=== PATIENT | male | born 1960 | race Caucasian/White ===

== ENCOUNTER 2020-05-02 05:39 | Day surgery (SDC) | payer BC ==
[2020-04-26 11:32] LABS: ABSOLUTE BASOPHILS # (AUTO) 0.1 10^3/uL (0.0-0.2); ABSOLUTE EOSINOPHILS # (AUTO) 0.9 10^3/uL (0.0-0.6); ABSOLUTE LYMPHOCYTES (AUTO) 2.5 10^3/uL (0.5-4.7); ABSOLUTE MONOCYTES (AUTO) 0.4 10^3/uL (0.1-1.4); ABSOLUTE NEUT (AUTO) 6.9 10^3/uL (1.7-8.2); BASOPHILS % (AUTO) 0.7 % (0-2); EOSINOPHILS % (AUTO) 7.9 % (0-6); HEMATOCRIT 41.1 % (37.9-51.0); HEMOGLOBIN 13.7 g/dL (13.5-17.0); LYMPHOCYTES % (AUTO) 23.7 % (13-45); MEAN CORPUSCULAR HGB CONC 33.4 g/dL (32.0-36.0); MEAN CORPUSCULAR VOLUME 84 fl (80-97); MONOCYTES % (AUTO) 4.2 % (3-13); PLATELET COUNT 244 10^3/uL (150-450); RED CELL DISTRIBUTION WIDTH 15.5 % (11.5-14.0); SEGMENTED NEUTROPHILS % (AUTO) 63.5 % (42-78); TOTAL CELLS COUNTED % (AUTO) 100 %; WHITE BLOOD COUNT 10.8 10^3/uL (4.0-10.5)
[2020-04-26 11:45] LABS: ANION GAP 9 (5-19); BLOOD UREA NITROGEN 19 mg/dL (7-20); CALCIUM 9.4 mg/dL (8.4-10.2); CARBON DIOXIDE 30 mmol/L (22-30); CHLORIDE 98 mmol/L (98-107); GLUCOSE 128 mg/dL (75-110); POTASSIUM 3.9 mmol/L (3.6-5.0)
--- NOTE | 2020-04-26 17:57 | EKG REPORT ---
SEVERITY:- DEFECTIVE ECG - BORDERLINE T ABNORMALITIES, ANT-LAT LEADS SINUS RHYTHM WITH BASELINE ARTIFACT.REPEAT EKG : Confirmed by: Shae Still MD 26-Apr-2020 17:56:24
[~2020-05-02 05:39] MED LIST: ACETAMINOPHEN 325 MG TABLET PO PRN; CEFAZOLIN 2 GM/D5W RTU 2 GM/50 ML RTUPB IV PRN; CELECOXIB 200 MG CAPSULE PO PRN; GABAPENTIN 100 MG CAPSULE PO PRN; LACTATED RINGERS 1000 ML IV PRN; LIDOCAINE 0.5% INJ-PF (5 MG/ML) 50 ML SDV SUBCUT PRN; ONDANSETRON HCL INJ/PF 4 MG/2 ML SDV IV PRN; OXYCODONE HCL SR 10 MG TABLET PO PRN; SCOPOLAMINE HYDROBROMIDE 1.5 MG PATCH.TD72 TD PRN; TRAMADOL HCL 50 MG TABLET PO PRN; TRANEXAMIC ACID INJ/PF 1,000 MG/10 ML SDV IV PRN; VANCOMYCIN HCL 1,000 MG in DEXTROSE 5%-WATER 250 ML IV PRN
[2020-05-02] MEDS ORDERED: VANCOMYCIN HCL INJ 1000 MG VIAL ONE ×2 (06:28→07:10)
[2020-05-02] MEDS ORDERED: CEFAZOLIN 2 GM/D5W RTU 2 GM/50 ML RTUPB IV ONE (07:06)
[2020-05-02] MEDS ORDERED: BUPIVACAINE HCL 0.25 % INJ/PF (2.5 MG/1 ML) 30 ML VIAL ONE (07:10)
[2020-05-02] MEDS ORDERED: KETOROLAC TROMETHAMINE INJ/PF 30 MG/1 ML SDV ONE (07:10)
[2020-05-02] MEDS ORDERED: LIDOCAINE 1% INJ-PF (10 MG/ML) 30 ML SDV ONE (07:10)
[2020-05-02] MEDS ORDERED: LIDOCAINE 2% INJ (20 MG/ML) 20 ML MDV ONE (07:11)
[2020-05-02] MEDS ORDERED: FENTANYL CITRATE INJ/PF 100 MCG/2 ML AMPUL ONE (07:12)
[2020-05-02] MEDS ORDERED: PROPOFOL 1,000 MG/100 ML INFUS..BTL IV ONE (07:13)
[2020-05-02] MEDS ORDERED: MIDAZOLAM 2 MG/2 ML INJ ONE (07:13)
[2020-05-02] MEDS ORDERED: TRANEXAMIC ACID INJ/PF 1,000 MG/10 ML SDV ONE (07:19)
[2020-05-02] MEDS ORDERED: CEFAZOLIN INJ 1 GM VIAL ONE (08:25)
[2020-05-02] MEDS ORDERED: DEXMEDETOMIDINE INJ 80 MCG/20 ML VIAL IV ONE (09:34)
--- NOTE | 2020-05-02 10:56 | Operative Report ---
Operative Report DATE OF SURGERY: 05/02/20 PREOPERATIVE DIAGNOSIS: Right hip primary osteoarthritis POSTOPERATIVE DIAGNOSIS: Severe right hip primary osteoarthritis OPERATION: Right total hip arthroplasty SURGEON: UNRULY VILLALBA JR ANESTHESIA: Spinal COMPLICATIONS: None ESTIMATED BLOOD LOSS: 550 cc PROCEDURE: Implants: Inga secure fit size 10 femoral stem with lateral offset, a Trident 2 size 58 cup, and a standard liner, a +7.5 neck length 36 mm ceramic head BRIEF HISTORY: 59 year old male with severe degenerative arthritis of right hip, which has failed conservative treatment and has elected for a total hip arthroplasty. Risks include but are not limited to bleeding, infection, anesthesia, , injury to nerve or vessel, pain, scar, leg length inequality, dislocation, future surgery, and blood clots. Patient read through the pre-op counseling form and signed and consented for surgery on their right hip. OPERATIVE PROCEDURE: Patient was brought to the operating room on and underwent spinal anesthesia. 3 grams of Ancef and 1 g of vancomycin was given. After proper anesthesia was obtained, patient was positioned, padded, prepped, and draped in the usual sterile fashion on the operating room table. Appropriate time out was performed. An anterior approach to the hip was undertaken with meticulous hemostasis through the deep interval. A capsulectomy was performed followed by exposure of the femoral neck. The femoral neck was cut in line with the femoral broach. The patient had severe valgus alignment of his [place] femoral neck. Our standard neck cut produced a relatively low in relation to the lesser trochanter as compared to standard procedure. The acetabulum was then exposed with three retractors in an atraumatic fashion. Soft tissue and osteophytes were removed. Medialization reaming was performed followed by anatomic reaming up to accept a 58 mm acetabulum. Wound was irrigated with dilute betadyne solution and the 58 mm acetabulum was impacted into correct position and stability checked by manipulating the impaction handle which rocked the pelvis. A standard liner was impacted into the shell with good stability. Potential impinging osteophytes were removed. Attention was then directed toward the femur, which was exposed with two retractors in an atraumatic fashion. A bone hook was placed to carefully perform releases along the superior capsule until the femur was safely delivered through the wound. A dry box operator was utilized followed by lateralization rasping and then broaching up to accept a size 5 Accolade 2 femur. Unfortunately due to the patient's anatomy, the broach repeatedly wanted to seat into acceptable anteversion. This is in spite of the patient having apparent relative retroversion of his [place] femur. Multiple attempts were made to correct the version including reaming distally, and proceed to a size 6 stem in appropriate version but rotational stability was not able to be accomplished. At this point we decided to move to a secure fit style stem. We broached up to a size 9 stem then, reviewing with fluoroscopy appeared that we could proceed to a size 10. At this point we reamed in order to ensure appropriate broaching. We were able to seat a size 10 stem in appropriate position with good stability and version. With a standard offset neck and a standard neck length head, reproduced adequate stability and slightly short leg length on the right. We proceeded to a size +5 head which achieved good stability and leg length. The real size 10 was impacted and appeared to seat at the level of the prior broach. We impacted the real size 5 head into position on a clean dry taper. Upon trialing the leg length was appropriate and stability was likely adequate with 1 position of external rotation that was concerning for potential anterior dislocation. At this point removed the head and then trialed a +7.5 head which achieved good leg length and stability. The real 7.5 36 mm ceramic head was impacted on a clean dry femoral taper. The hip was irrigated and reduced, further irrigation with antibiotic solution, betadine solution, then antibiotic solution. Bleeders were coagulated with bovie cautery. The fascia was then closed with number 2 Stratofix; the subcutaneous tissue closed with interrupted inverted 2-0 monocryl then running 3-0 monocryl subcuticular. A silver dressing was then applied. All needle sponge and instrument counts were correct. Patient was awakened from sedation anesthesia and taken to recovery room in good condition. Thank you, Unruly Villalba DO Due to the patient's BMI of 40.7 as well as his altered anatomy as described above, the case took more time and effort then a standard total hip arthrop lasty. Increased time and effort were required to achieve good exposure, as well as increased effort required to manipulate his large heavy leg. Also increased time and effort were required to achieve good stability given his size and unique anatomy. Increased time and effort required to close the wound as well given the larger incision than is typically utilized. Due to these factors we are billing a 22 modifier.
[2020-05-02] MEDS ORDERED: PROPOFOL INJ 200 MG/20 ML VIAL IV ONE (11:03)
[2020-05-02] MEDS ORDERED: MEPERIDINE HCL/PF INJ 25 MG/1 ML DISP.SYRIN IV PRN (11:47)
[2020-05-02] MEDS ORDERED: FENTANYL CITRATE INJ/PF 100 MCG/2 ML AMPUL IV PRN ×3 (11:47)
[2020-05-02] MEDS ORDERED: MORPHINE SULFATE 10 MG/ML INJ IV PRN (11:47)
[2020-05-02] MEDS ORDERED: DIPHENHYDRAMINE HCL 50 MG/ML VIAL IV PRN (11:47)
[2020-05-02] MEDS ORDERED: ONDANSETRON HCL INJ/PF 4 MG/2 ML SDV IV PRN (11:47)
[2020-05-02] MEDS: EPHEDRINE SULFATE INJ 50 MG/1 ML AMPULE ONE ×4 (11:49→12:20)
--- NOTE | 2020-05-02 12:29 | RADIOLOGY REPORT (SQ) ---
EXAM DESCRIPTION: NO CHG FLUORO; HIP IN OPERATING RM IMAGES COMPLETED DATE/TIME: 05/02/2020 11:18 am REASON FOR STUDY: RIGHT TOTAL HIP ARTHROPLASTY COMPARISON: None. FLUOROSCOPY TIME: 0.1 minutes 3 Images saved to PACS LIMITATIONS: None. PROCEDURE: Right total hip arthroplasty. FINDINGS: Images from fluoro document the procedure. IMPRESSION: Right hip arthroplasty. Refer to operative note for further information. COMMENT: PQRS 6045F: Fluoroscopy time of the procedure is documented in the report. TECHNICAL DOCUMENTATION: JOB ID: [id number] 2010 [email or web address]- All Rights Reserved Reading location - IP/workstation name: [email or web address]
--- NOTE | 2020-05-02 12:29 | RADIOLOGY REPORT (SQ) ---
EXAM DESCRIPTION: NO CHG FLUORO; HIP IN OPERATING RM IMAGES COMPLETED DATE/TIME: 05/02/2020 11:18 am REASON FOR STUDY: RIGHT TOTAL HIP ARTHROPLASTY COMPARISON: None. FLUOROSCOPY TIME: 0.1 minutes 3 Images saved to PACS LIMITATIONS: None. PROCEDURE: Right total hip arthroplasty. FINDINGS: Images from fluoro document the procedure. IMPRESSION: Right hip arthroplasty. Refer to operative note for further information. COMMENT: PQRS 6045F: Fluoroscopy time of the procedure is documented in the report. TECHNICAL DOCUMENTATION: JOB ID: [id number] 2010 [employer]- All Rights Reserved Reading location - IP/workstation name: [email or web address]
--- NOTE | 2020-05-02 12:36 | RADIOLOGY REPORT (SQ) ---
EXAM DESCRIPTION: HIP RIGHT AP/LATERAL IMAGES COMPLETED DATE/TIME: 05/02/2020 12:09 pm REASON FOR STUDY: S/P RIGHT TOTAL HIP M25.551 PAIN IN RIGHT HIP COMPARISON: None. NUMBER OF VIEWS: Two views. TECHNIQUE: AP pelvis and additional frog-leg view of the right hip. LIMITATIONS: None. FINDINGS: MINERALIZATION: Normal. RIGHT HIP: Status post right total hip arthroplasty without evidence of hardware complication. LEFT HIP: Degenerative changes. No acute findings. PUBIS AND ISCHIUM: No fracture. PELVIS: No fracture. SACRUM: No fracture or dislocation. No worrisome bone lesions. LOWER LUMBAR SPINE: Degenerative changes are present. SOFT TISSUES: Subcutaneous and intra-articular gas are not unexpected in the immediate postsurgical s etting. OTHER: No other significant finding. IMPRESSION: Status post right total hip arthroplasty without evidence of hardware complication. TECHNICAL DOCUMENTATION: JOB ID: [id number] 2010 [employer]- All Rights Reserved Reading location - IP/workstation name: [email or web address]
[2020-05-02] MEDS ORDERED: ONDANSETRON HCL INJ/PF 4 MG/2 ML SDV ONE (13:03)
[2020-05-02] MEDS ORDERED: OXYCODONE HCL IR 5 MG TABLET PO PRN (14:49)
[2020-05-02] MEDS ORDERED: TRAMADOL HCL 50 MG TABLET PO PRN (14:51)
[2020-05-02] MEDS ORDERED: DIPHENHYDRAMINE HCL 25 MG CAPSULE PO PRN (14:57)
[2020-05-02] MEDS ORDERED: ZOLPIDEM TARTRATE 5 MG TABLET PO PRN (14:57)
[2020-05-02] MEDS ORDERED: NORMAL SALINE 1000 ML 1,000 ML IV PRN (14:59)
[2020-05-02] MEDS ORDERED: DOCUSATE SODIUM 100 MG CAPSULE PO PRN (14:59)
[2020-05-02] MEDS ORDERED: ONDANSETRON 4 MG TAB.RAPDIS PO PRN (15:00)
[2020-05-02] MEDS: OXYCODONE HCL IR 5 MG TABLET PO PRN ×2 (16:25→20:55)
[2020-05-02] MEDS: CEFAZOLIN 2 GM/D5W RTU 2 GM/50 ML RTUPB IV SCH (17:52)
[2020-05-02] MEDS: GABAPENTIN 100 MG CAPSULE PO SCH ×2 (17:53→18:12)
[2020-05-02] MEDS: MORPHINE SULFATE 10 MG/ML INJ IV PRN ×2 (17:53→20:05)
[2020-05-02] MEDS ORDERED: PANTOPRAZOLE SODIUM 20 MG TABLET.DR PO ONE (18:00)
[2020-05-02] MEDS: KETOROLAC TROMETHAMINE INJ/PF 30 MG/1 ML SDV IV SCH (22:01)
[2020-05-02] MEDS: ACETAMINOPHEN 325 MG TABLET PO SCH (22:01)
[2020-05-03] MEDS: MORPHINE SULFATE 10 MG/ML INJ IV PRN ×2 (00:02→03:46)
[2020-05-03] MEDS: CEFAZOLIN 2 GM/D5W RTU 2 GM/50 ML RTUPB IV SCH (01:03)
[2020-05-03] MEDS: OXYCODONE HCL IR 5 MG TABLET PO PRN ×3 (01:06→13:52)
[2020-05-03] MEDS: KETOROLAC TROMETHAMINE INJ/PF 30 MG/1 ML SDV IV SCH ×2 (05:30→13:13)
[2020-05-03] MEDS: ACETAMINOPHEN 325 MG TABLET PO SCH (05:30)
[2020-05-03] MEDS ORDERED: CYCLOBENZAPRINE HCL 10 MG TABLET PO PRN (07:26)
--- NOTE | 2020-05-03 07:26 | PDOC PROGRESS REPORT ---
Subjective Progress Note for:: 05/03/20 Subjective:: Patient doing well this morning, reported some lightheadedness with attempted PT yesterday and they decided to reevaluate today. He is feeling better this morning, less nausea, no pain in the right hip at this time. Reason For Visit: RIGHT TOTAL HIP Physical Exam Vital Signs: Temp Pulse Resp BP Pulse Ox 98.6 F 85 18 114/62 96 05/03/20 00:51 05/03/20 00:51 05/03/20 00:51 05/03/20 00:51 05/03/20 00:51 Intake & Output 05/02/20 05/03/20 05/04/20 06:59 06:59 06:59 Intake Total 0 7180 Output Total 1625 Balance 0 5555 Weight 136.08 kg 145.4 kg Physical Exam: No acute distress, alert and oriented x3 Right lower extremity -Pulses 2+ distally -Compartments soft -Sensation grossly intact to L3-4-5 S1 -Motor grossly intact to EHL TA gastroc and quad Results Laboratory Results: 04/26/20 10:22 05/02/20 06:11 05/02/20 06:11 Blood Type A POSITIVE Antibody Screen NEGATIVE Impressions: Fluoroscopy 05/02/20 00:00 IMPRESSION: Right hip arthroplasty. Refer to operative note for further information. Hip X-Ray 05/02/20 00:00 IMPRESSION: Right hip arthroplasty. Refer to operative note for further information. Hip/Pelvis X-Ray 05/02/20 11:06 IMPRESSION: Status post right total hip arthroplasty without evidence of hardware complication. Assessment & Plan - Diagnosis (1) History of total right hip arthroplasty Is this a current diagnosis for this admission?: Yes Plan: -We will likely be able to be discharged today to home. The patient should be placed upright in chair prior to physical therapy evaluation for at least 30 minutes. If recurrent symptoms of lightheadedness check H and H. - 2 doses of Ancef postoperatively q 8 hours to complete 24 hours perioperatively -Weightbearing as tolerated, no precautions, encourage out of bed KARLO for ADL training - PT/OT - Keep knee extended in bed, rolled towel under the ankle to obtain full extension -aspirin 325 daily for DVT prophylaxis for 6 weeks -multimodal pain management to avoid excessive narcotics, including gabapentin, tramadol, Toradol, acetaminophen. -Dressing should not be removed for 7 to 10 days until seen in the office -May shower with the dressing intact, if it starts to come off she should not get the incision wet. -I would like to follow the patient my office within the next 7 to [address] [place] [address]. in [place] office #: [phone] - Time Time Spent with patient: Less than 15 minutes
[2020-05-03] MEDS ORDERED: MORPHINE SULFATE IR 30 MG TABLET PO SCH (10:00)
[2020-05-03] MEDS ORDERED: HYDROCHLOROTHIAZIDE 25 MG TABLET PO SCH (10:00)
[2020-05-03] MEDS ORDERED: POLYETHYLENE GLYCOL 3350 POWDER 17 GM/1 PACKET PO SCH (10:00)
[2020-05-03] MEDS ORDERED: (PENDING PHARMACY ID) (Losartan/Hydrochlorothiazide [Losartan-Hctz 100-25 Mg Tab] 1 TAB) PO SCH (10:00)
[2020-05-03] MEDS ORDERED: LOSARTAN POTASSIUM 50 MG TABLET PO SCH (10:00)
[2020-05-03] MEDS ORDERED: ASPIRIN 325 MG TABLET, ENT COATED PO SCH (10:00)
[2020-05-03] MEDS: GABAPENTIN 100 MG CAPSULE PO SCH (10:30)
[2020-05-03 13:37] VITALS: BP 150/82
[2020-05-03] MEDS ORDERED: AMITRIPTYLINE HCL 25 MG TABLET PO SCH (22:00)
[2020-05-04] MEDS ORDERED: CELECOXIB 200 MG CAPSULE PO SCH (10:00)
== END 2020-05-03 14:15 | disposition home or self-care (01) ==
LOC: OROUT 05:39 → 4S 13:17 → OROUT 05-03 14:15
PROVIDERS: ATTEND Orthopaedic Surgery
DX: M25.551 Pain in right hip (principal); I10 Essential (primary) hypertension; Z79.899 Other long term (current) drug therapy; M16.11 Unilateral primary osteoarthritis, right hip; E66.9 Obesity, unspecified; Z03.818 Encounter for observation for suspected exposure to other biological agents ruled out
CPT/HCPCS: 93005; 86900; 86901; 36415 ×2; 86850; 84132; 87635; 80048; 73502; 73501; 93010; 97530 ×3; 97110; 97116; 97162; 97535; 97166; 01214; 27130; C1776 ×3; J2250; J3490 ×6; J0690 ×3; J3010; J2704 ×2; J1885 ×2; J2270 ×2; J2405; J7060; J7030; J3370 ×2; C9803

== ENCOUNTER 2020-09-13 05:36 | Observation (INO) | payer BC ==
[2020-09-07 14:33] LABS: ABSOLUTE BASOPHILS # (AUTO) 0.1 10^3/uL (0.0-0.2); ABSOLUTE EOSINOPHILS # (AUTO) 0.4 10^3/uL (0.0-0.6); ABSOLUTE LYMPHOCYTES (AUTO) 3.4 10^3/uL (0.5-4.7); ABSOLUTE MONOCYTES (AUTO) 0.6 10^3/uL (0.1-1.4); BASOPHILS % (AUTO) 0.7 % (0-2); EOSINOPHILS % (AUTO) 3.5 % (0-6); HEMATOCRIT 38.8 % (37.9-51.0); HEMOGLOBIN 12.2 g/dL (13.5-17.0); LYMPHOCYTES % (AUTO) 29.5 % (13-45); MEAN CORPUSCULAR HEMOGLOBIN 23.4 pg (27.0-33.4); MEAN CORPUSCULAR HGB CONC 31.5 g/dL (32.0-36.0); MEAN CORPUSCULAR VOLUME 74 fl (80-97); MONOCYTES % (AUTO) 5.3 % (3-13); PLATELET COUNT 279 10^3/uL (150-450); RED BLOOD COUNT 5.22 10^6/uL (4.35-5.55); RED CELL DISTRIBUTION WIDTH 18.5 % (11.5-14.0); TOTAL CELLS COUNTED % (AUTO) 100 %; WHITE BLOOD COUNT 11.5 10^3/uL (4.0-10.5)
[2020-09-07 14:37] LABS: INTERNATIONAL RATION (INR) 0.94; PARTIAL THROMBOPLASTIN TIME 29.3 SEC (23.5-35.8); PROTHROMBIN TIME 12.8 SEC (11.4-15.4)
[2020-09-07 14:41] LABS: APPEARANCE,URINE CLEAR; BILIRUBIN,URINE NEGATIVE (NEGATIVE); COLOR,URINE YELLOW; GLUCOSE, URINE NEGATIVE (NEGATIVE); KETONES,URINE NEGATIVE (NEGATIVE); LEUKOCYTE ESTERASE,URINE NEGATIVE (NEGATIVE); NITRITE,URINE NEGATIVE (NEGATIVE); PROTEIN,URINE NEGATIVE (NEGATIVE); URINE SPECIFIC GRAVITY 1.016; UROBILINOGEN,URINE NEGATIVE mg/dL (<2.0)
[2020-09-07 15:06] LABS: ALBUMIN 4.1 g/dL (3.5-5.0); ANION GAP 9 (5-19); BLOOD UREA NITROGEN 19 mg/dL (7-20); C-REACTIVE PROTEIN 16.8 mg/L (<10.0); CALCIUM 9.3 mg/dL (8.4-10.2); CARBON DIOXIDE 28 mmol/L (22-30); CHLORIDE 99 mmol/L (98-107); GLUCOSE 82 mg/dL (75-110); POTASSIUM 3.8 mmol/L (3.6-5.0)
[2020-09-07 15:09] LABS: ERYTHROCYTE SEDIMENTATION RATE 21 mm/hr (0-20)
[~2020-09-13 05:36] MED LIST changes: -ACETAMINOPHEN 325 MG TABLET PO PRN; -CEFAZOLIN 2 GM/D5W RTU 2 GM/50 ML RTUPB IV PRN; -CELECOXIB 200 MG CAPSULE PO PRN; -GABAPENTIN 100 MG CAPSULE PO PRN; -LIDOCAINE 0.5% INJ-PF (5 MG/ML) 50 ML SDV SUBCUT PRN; -ONDANSETRON HCL INJ/PF 4 MG/2 ML SDV IV PRN; -OXYCODONE HCL SR 10 MG TABLET PO PRN; +RINGERS SOLUTION,LACTATED 1,000 ML IV PRN; -SCOPOLAMINE HYDROBROMIDE 1.5 MG PATCH.TD72 TD PRN; -TRAMADOL HCL 50 MG TABLET PO PRN; -TRANEXAMIC ACID INJ/PF 1,000 MG/10 ML SDV IV PRN; -VANCOMYCIN HCL 1,000 MG in DEXTROSE 5%-WATER 250 ML IV PRN
[2020-09-13] MEDS ORDERED: PROPOFOL INJ 200 MG/20 ML VIAL IV ONE (06:48)
[2020-09-13] MEDS ORDERED: ONDANSETRON HCL INJ/PF 4 MG/2 ML SDV ONE ×2 (06:48→07:31)
[2020-09-13] MEDS ORDERED: MIDAZOLAM 2 MG/2 ML INJ ONE ×2 (06:48→08:38)
[2020-09-13] MEDS ORDERED: TRANEXAMIC ACID INJ/PF 1,000 MG/10 ML SDV ONE (06:48)
[2020-09-13] MEDS ORDERED: FENTANYL CITRATE INJ/PF 100 MCG/2 ML AMPUL ONE ×2 (06:48→08:38)
[2020-09-13] MEDS ORDERED: LIDOCAINE 2% INJ (20 MG/ML) 20 ML MDV ONE (06:50)
[2020-09-13] MEDS ORDERED: LIDOCAINE 1% INJ-PF (10 MG/ML) 30 ML SDV ONE (07:13)
[2020-09-13] MEDS ORDERED: VANCOMYCIN HCL INJ 1000 MG VIAL ONE (07:13)
[2020-09-13] MEDS ORDERED: BUPIVACAINE HCL 0.25 % INJ/PF (2.5 MG/1 ML) 30 ML VIAL ONE (07:13)
[2020-09-13] MEDS ORDERED: KETOROLAC TROMETHAMINE INJ/PF 30 MG/1 ML SDV ONE (07:13)
[2020-09-13] MEDS ORDERED: VANCOMYCIN HCL 1,000 MG in DEXTROSE 5%-WATER 250 ML IV PRN (07:29)
[2020-09-13] MEDS ORDERED: CEFAZOLIN 2 GM/D5W RTU 0 GM/0 ML RTUPB IV ONE (07:30)
[2020-09-13] MEDS ORDERED: CELECOXIB 200 MG CAPSULE ONE (07:31)
[2020-09-13] MEDS ORDERED: GABAPENTIN 100 MG CAPSULE ONE (07:31)
[2020-09-13] MEDS ORDERED: PANTOPRAZOLE SODIUM 20 MG TABLET.DR PO ONE ×2 (07:31→07:37)
[2020-09-13] MEDS ORDERED: SCOPOLAMINE HYDROBROMIDE 1.5 MG PATCH.TD72 ONE (07:31)
[2020-09-13] MEDS ORDERED: OXYCODONE HCL SR 10 MG TABLET PO ONE (07:31)
[2020-09-13] MEDS ORDERED: ACETAMINOPHEN 325 MG TABLET ONE (07:31)
[2020-09-13] MEDS ORDERED: CELECOXIB 200 MG CAPSULE PO PRN (07:33)
[2020-09-13] MEDS ORDERED: OXYCODONE HCL SR 10 MG TABLET PO PRN (07:33)
[2020-09-13] MEDS ORDERED: ACETAMINOPHEN 325 MG TABLET PO PRN (07:34)
[2020-09-13] MEDS ORDERED: SCOPOLAMINE HYDROBROMIDE 1.5 MG PATCH.TD72 TD PRN (07:35)
[2020-09-13] MEDS ORDERED: TRANEXAMIC ACID INJ/PF 1,000 MG/10 ML SDV IV PRN (07:35)
[2020-09-13] MEDS ORDERED: GABAPENTIN 100 MG CAPSULE PO PRN (07:36)
[2020-09-13] MEDS ORDERED: PANTOPRAZOLE SODIUM 20 MG TABLET.DR PO PRN (07:36)
[2020-09-13] MEDS ORDERED: DIPHENHYDRAMINE HCL 25 MG CAPSULE PO PRN (07:37)
[2020-09-13] MEDS ORDERED: DOCUSATE SODIUM 100 MG CAPSULE PO PRN (07:37)
[2020-09-13] MEDS ORDERED: MORPHINE SULFATE 10 MG/ML INJ IV PRN ×2 (07:37→08:50)
[2020-09-13] MEDS ORDERED: NORMAL SALINE 1000 ML 1,000 ML IV ONE (07:37)
[2020-09-13] MEDS ORDERED: TRANEXAMIC ACID INJ/PF 1,000 MG/10 ML SDV IV ONE (07:37)
[2020-09-13] MEDS ORDERED: ZOLPIDEM TARTRATE 5 MG TABLET PO PRN (07:37)
[2020-09-13] MEDS ORDERED: OXYCODONE HCL IR 5 MG TABLET PO PRN ×5 (07:37→07:40)
[2020-09-13] MEDS ORDERED: TRAMADOL HCL 50 MG TABLET PO PRN (07:37)
[2020-09-13] MEDS ORDERED: ONDANSETRON 4 MG TAB.RAPDIS PO PRN (07:37)
[2020-09-13] MEDS ORDERED: DEXAMETHASONE SOD PHOS INJ 10 MG/1 ML VIAL IV ONE (07:37)
[2020-09-13] MEDS ORDERED: CYCLOBENZAPRINE HCL 10 MG TABLET PO PRN (07:40)
[2020-09-13] MEDS ORDERED: HYDROCHLOROTHIAZIDE 25 MG TABLET PO PRN (07:40)
[2020-09-13] MEDS ORDERED: CEFAZOLIN SODIUM 3 GM in DEXTROSE 5%-WATER 100 ML IV PRN (07:42)
--- NOTE | 2020-09-13 07:43 | RADIOLOGY REPORT (SQ) ---
CHEST X-RAY 1 VIEW on 09/13/2020 at 6:23 AM CLINICAL INDICATION: Preop left hip arthroplasty COMPARISON: None FINDINGS: Borderline cardiomegaly is noted. Stimulator leads project over the lower thoracic spine. The lungs are clear. Hilar and mediastinal contours are within normal limits. Pulmonary vascularity is within normal limits. IMPRESSION: No acute disease.
[2020-09-13] MEDS ORDERED: CEFAZOLIN 1 GM/D5W RTU 1 GM/50 ML RTUPB IV ONE (07:53)
[2020-09-13] MEDS ORDERED: CEFAZOLIN 2 GM/D5W RTU 2 GM/50 ML RTUPB IV ONE (07:53)
[2020-09-13] MEDS ORDERED: FENTANYL CITRATE INJ/PF 100 MCG/2 ML AMPUL IV PRN ×3 (08:50)
[2020-09-13] MEDS ORDERED: OXYCODONE-ACETAMINOPHEN 5-325 MG TABLET PO PRN ×2 (08:50)
[2020-09-13] MEDS ORDERED: PROMETHAZINE HCL INJ 25 MG/1 ML VIAL IV PRN ×2 (08:50)
[2020-09-13] MEDS ORDERED: MULTIVIT WITH MINERALS PO SCH (10:00)
[2020-09-13] MEDS ORDERED: [UNRECOGNIZED DRUG - OTHER] PO SCH (10:00)
[2020-09-13] MEDS ORDERED: NALOXEGOL OXALATE 25 MG PO SCH (10:00)
[2020-09-13] MEDS ORDERED: LUTEIN PO SCH (10:00)
[2020-09-13] MEDS ORDERED: (PENDING PHARMACY ID) (Losartan Potassium [Losartan Potassium] 100 MG Tablet) PO SCH (10:00)
[2020-09-13] MEDS ORDERED: ASPIRIN 325 MG TABLET PO SCH (10:00)
--- NOTE | 2020-09-13 10:04 | Operative Report ---
Operative Report DATE OF SURGERY: 09/13/20 PREOPERATIVE DIAGNOSIS: Severe primary left hip osteoarthritis POSTOPERATIVE DIAGNOSIS: Severe primary left hip osteoarthritis OPERATION: Left total hip arthroplasty SURGEON: DAVE VILLALBA JR ANESTHESIA: Spinal COMPLICATIONS: None ESTIMATED BLOOD LOSS: 800 cc PROCEDURE: Implants: [employer] a fit size 11 femoral stem with high offset, a R3 size 56 cup, and a standard liner, a +4 neck length 36 mm Oxinium head OPERATIVE PROCEDURE: Patient was brought to the operating room on and underwent spinal anesthesia. 3 grams of Ancef and 1 g of vancomycin was given. After proper anesthesia was obtained, patient was positioned, padded, prepped, and draped in the usual sterile fashion on the operating room table. Appropriate time out was performed. An anterior approach to the hip was undertaken with meticulous hemostasis through the deep interval. A capsulectomy was performed followed by exposure of the femoral neck. The femoral neck was cut in line with the femoral broach and the femoral head was removed. The acetabulum was then exposed with three retractors in an atraumatic fashion. Soft tissue and osteophytes were removed. Medialization reaming was performed followed by reaming of the acetabulum. Wound was irrigated with dilute betadyne solution and the 56 mm acetabulum was impacted into correct position and stability checked by manipulating the impaction handle which rocked the pelvis. A standard liner was impacted into the shell with good stability. Potential impinging osteophytes were removed. Attention was then directed toward the femur, which was exposed with two retractors in an atraumatic fashion. A bone hook was placed to carefully perform releases along the superior capsule until the femur was safely delivered through the wound. A box toe cementer was utilized followed by lateralization rasping and then broaching up to a stable, filled proximal femur. With a high offset neck and a 36 standard head, stability was good in flexion and extension with near equal leg lengths. The final size 11 stem was impacted into a copiously irrigated femoral canal. We trialed again and due to slight laxity determined to put in the +4 neck length head. The final size +4, 36 mm head was impacted on a clean dry femoral taper. The hip was irrigated and reduced, further irrigation with antibiotic solution, betadine solution, then antibiotic solution. Bleeders were coagulated with bovie cautery. The fascia was then closed with number 2 barbed PDS; the subcutaneous tissue closed with 2-0 monocryl and then a running 3-0 monocryl subcuticular. A silver dressing was then applied. All needle sponge and instrument counts were correct. Patient was awakened from sedation anesthesia and taken to recovery room in stable condition. Patient has a BMI of 38.5. Additionally he is 6 foot 3 inches and 139.7 kg.. Given this, the size of his extremity, and the soft tissue envelope, this case required increased time and effort. Increased time and effort was required to gain exposure and to perform safe and effective retraction of the soft tissues as well as taking the extremity through motions required for safe implantation and in order to ensure appropriate balance. Due to the patient's size and the weight of his leg, substantial effort was required as well as recruitment of additional staff to assist in hip exposure, manipulation, and reduction. Trialing was difficult and required substantial effort and diligent patients in order to carefully obtain an ideal outcome. Additionally there was increased time and effort required in order to close the wound. For these reasons we are billing a 22 modifier for increased time and effort.
--- NOTE | 2020-09-13 10:42 | Discharge Summary ---
Discharge Summary (SDC) - Discharge Final Diagnosis: Left total hip arthroplasty Date of Surgery: 09/13/20 Discharge Date: 09/13/20 Condition: Stable Treatment or Instructions: Full details of postoperative instructions have been provided to the patient in the clinic. Additionally they should maintain their bandage in place for 10 days, and then changed to a dry dressing. They can take showers with this occlusive dressing but any further dressing should also be occlusive. No showers with the wound unprotected until cleared by me in the clinic. If the bandage falls off early or become saturated they can change as needed to another occlusive dressing. Follow-up with Dr. Unruly Ng, orthopedic surgeon at [facility] for surgery, in 10 days. Call for an appointment. . [address], [place] [address] Discharge Diet: As Tolerated Respiratory Treatments at Home: Deep Breathing/Coughing Discharge Activity: Activity As Tolerated, No Driving, Keep Legs Elevated, No Lifting/Push/Pulling, Slowly Increase Activity, No tub bath, Walk Frequently Activities Provided by Home Health Agency: Physical Therapy Adaptive Devices on Discharge: Rolling Walker, Bedside Commode Report the Following to Your Physician Immediately: Shortness of Breath, Fever over 101 Degrees, Unusual Bleeding, Drainage-Yellow
[2020-09-13] MEDS: MORPHINE SULFATE IR 30 MG TABLET PO SCH ×2 (12:48→17:09)
[2020-09-13] MEDS: ONDANSETRON 4 MG TAB.RAPDIS PO PRN ×2 (12:50→20:14)
[2020-09-13] MEDS: ACETAMINOPHEN 325 MG TABLET PO SCH ×2 (12:50→17:10)
--- NOTE | 2020-09-13 13:06 | RADIOLOGY REPORT (SQ) ---
EXAM DESCRIPTION: NO CHG FLUORO; HIP IN OPERATING RM IMAGES COMPLETED DATE/TIME: 09/13/2020 10:17 am; 09/13/2020 10:18 am REASON FOR STUDY: LEFT HIP TOTAL ARTHROPLASTY ASSISTED WITH FLUORO IN OR COMPARISON: None. FLUOROSCOPY TIME: No recordable fluoro time 2 Images saved to PACS LIMITATIONS: None. PROCEDURE: Left hip arthroplasty FINDINGS: Images from fluoro document the progress of the procedure. IMPRESSION: Left hip arthroplasty. Refer to operative note for further information. COMMENT: PQRS 6045F: Fluoroscopy time of the procedure is documented in the report. TECHNICAL DOCUMENTATION: JOB ID: [id number] 2010 [employer]- All Rights Reserved Reading location - IP/workstation name: [email or web address]
--- NOTE | 2020-09-13 13:06 | RADIOLOGY REPORT (SQ) ---
EXAM DESCRIPTION: NO CHG FLUORO; HIP IN OPERATING RM IMAGES COMPLETED DATE/TIME: 09/13/2020 10:17 am; 09/13/2020 10:18 am REASON FOR STUDY: LEFT HIP TOTAL ARTHROPLASTY ASSISTED WITH FLUORO IN OR COMPARISON: None. FLUOROSCOPY TIME: No recordable fluoro time 2 Images saved to PACS LIMITATIONS: None. PROCEDURE: Left hip arthroplasty FINDINGS: Images from fluoro document the progress of the procedure. IMPRESSION: Left hip arthroplasty. Refer to operative note for further information. COMMENT: PQRS 6045F: Fluoroscopy time of the procedure is documented in the report. TECHNICAL DOCUMENTATION: JOB ID: [id number] 2010 [employer]- All Rights Reserved Reading location - IP/workstation name: [email or web address]
--- NOTE | 2020-09-13 13:26 | RADIOLOGY REPORT (SQ) ---
EXAM DESCRIPTION: HIP LEFT AP/LATERAL IMAGES COMPLETED DATE/TIME: 09/13/2020 10:44 am REASON FOR STUDY: post op M16.12 UNILATERAL PRIMARY OSTEOARTHRITIS, LEFT HIP COMPARISON: None. NUMBER OF VIEWS: Two views. TECHNIQUE: AP pelvis and additional frog legview of the left hip. LIMITATIONS: None. FINDINGS: MINERALIZATION: Normal. LEFT HIP: New left hip arthroplasty in good position. RIGHT HIP: Pre-existing right hip arthroplasty. PUBIS AND ISCHIUM: No fracture. PELVIS: No fracture. SACRUM: No fracture or dislocation. No worrisome bone lesions. LOWER LUMBAR SPINE: No fracture or dislocation. No worrisome bone lesions. No significant disc disea se. SOFT TISSUES: No findings. OTHER: No other significant finding. IMPRESSION: Left hip arthroplasty. Refer to operative note for further information. TECHNICAL DOCUMENTATION: JOB ID: [id number] 2010 [employer]- All Rights Reserved Reading location - IP/workstation name: [email or web address]
[2020-09-13] MEDS: KETOROLAC TROMETHAMINE INJ/PF 30 MG/1 ML SDV IV SCH ×2 (13:54→22:12)
[2020-09-13] MEDS ORDERED: CEFAZOLIN 2 GM/D5W RTU 2 GM/50 ML RTUPB IV SCH (14:00)
[2020-09-13] MEDS ORDERED: ACETAMINOPHEN 325 MG TABLET PO SCH (14:00)
[2020-09-13] MEDS: CEFAZOLIN SODIUM 2 GM in DEXTROSE 5%-WATER 100 ML IV SCH ×2 (14:09→22:11)
[2020-09-13] MEDS: MORPHINE SULFATE 10 MG/ML INJ IV PRN (14:58)
--- NOTE | 2020-09-13 21:28 | EKG REPORT ---
SEVERITY:- BORDERLINE ECG - SINUS RHYTHM BORDERLINE T ABNORMALITIES, ANTERIOR LEADS : Confirmed by: Shae Still MD 13-Sep-2020 21:27:41
[2020-09-13] MEDS ORDERED: ZOLPIDEM TARTRATE 12.5 MG PO SCH (22:00)
[2020-09-13] MEDS: GABAPENTIN 100 MG CAPSULE PO SCH (22:11)
[2020-09-14] MEDS: ACETAMINOPHEN 325 MG TABLET PO SCH ×2 (00:17→05:55)
[2020-09-14] MEDS: MORPHINE SULFATE 10 MG/ML INJ IV PRN (01:58)
[2020-09-14] MEDS: KETOROLAC TROMETHAMINE INJ/PF 30 MG/1 ML SDV IV SCH (05:55)
[2020-09-14 07:05] LABS: HEMATOCRIT 33.6 % (37.9-51.0); HEMOGLOBIN 10.4 g/dL (13.5-17.0); MEAN CORPUSCULAR HEMOGLOBIN 23.5 pg (27.0-33.4); MEAN CORPUSCULAR HGB CONC 31.1 g/dL (32.0-36.0); MEAN CORPUSCULAR VOLUME 76 fl (80-97); PLATELET COUNT 282 10^3/uL (150-450); RED BLOOD COUNT 4.44 10^6/uL (4.35-5.55); RED CELL DISTRIBUTION WIDTH 18.8 % (11.5-14.0); WHITE BLOOD COUNT 13.4 10^3/uL (4.0-10.5)
--- NOTE | 2020-09-14 07:11 | PDOC PROGRESS REPORT ---
Subjective Date:: 09/14/20 Subjective:: Patient seen and examined this morning. No acute events overnight. Feeling muc h better this morning. Has been able to ambulate multiple times since surgery without subsequent lightheadedness. Reason For Visit: M16.12 UNILATERAL PRIMARY OSTEOARTHRITIS, LEFT HIP Physical Exam Vital Signs: Temp Pulse Resp BP Pulse Ox 97.5 F 77 16 121/62 96 09/13/20 23:25 09/13/20 23:25 09/13/20 23:25 09/13/20 23:25 09/13/20 23:25 Intake & Output 09/13/20 09/14/20 09/15/20 06:59 06:59 06:59 Intake Total 0 2250 Output Total 1680 Balance 0 570 Weight 139.71 kg 141 kg Physical Exam: No acute distress, alert and x3 Left lower extremity -Pulses 2+ distally -Compartments soft -Sensation grossly intact to L3-4-5 S1 -Motor grossly intact to EHL TA gastroc and quad Dressing clean dry and intact Results Laboratory Results: 09/14/20 06:20 09/13/20 06:04 09/14/20 06:20 WBC 13.4 H RBC 4.44 Hgb 10.4 L Hct 33.6 L MCV 76 L MCH 23.5 L MCHC 31.1 L RDW 18.8 H Plt Count 282 Impressions: Chest X-Ray 09/13/20 00:00 IMPRESSION: No acute disease. Fluoroscopy 09/13/20 00:00 IMPRESSION: Left hip arthroplasty. Refer to operative note for further information. Hip X-Ray 09/13/20 07:39 IMPRESSION: Left hip arthroplasty. Refer to operative note for further information. Assessment & Plan - Diagnosis (1) History of total left hip arthroplasty Is this a current diagnosis for this admission?: Yes Plan: -A.m. labs are pending however patient is asymptomatic and vitals are stable. Is stable for discharge today. - 2 doses of Ancef postoperatively q 8 hours to complete 24 hours perioperatively -Weightbearing as tolerated, no precautions, encourage out of bed KARLO for ADL training - PT/OT -aspirin 325 daily for DVT prophylaxis for 6 weeks -multimodal pain management to avoid excessive narcotics, including gabapentin, tramadol, Toradol, acetaminophen. -Dressing should not be removed for 7 to 10 days until seen in the office -May shower with the dressing intact, if it starts to come off she should not get the incision wet. -Follow-up with Dr. Unruly Ng, orthopedic surgeon at [facility] for surgery, in 10 days. Call for an appointment. . [address], [place] [address] - Time Time Spent with patient: Less than 15 minutes
[2020-09-14 08:25] VITALS: BP 107/61
[2020-09-14] MEDS: MORPHINE SULFATE IR 30 MG TABLET PO SCH (09:17)
[2020-09-14] MEDS: GABAPENTIN 100 MG CAPSULE PO SCH (09:18)
[2020-09-14] MEDS ORDERED: PRENATAL VITAMIN W DHA CAPSULE PO SCH (10:00)
[2020-09-14] MEDS ORDERED: LOSARTAN POTASSIUM 50 MG TABLET PO SCH (10:00)
[2020-09-14] MEDS ORDERED: ASPIRIN 325 MG TABLET, ENT COATED PO SCH (10:00)
[2020-09-14] MEDS ORDERED: POLYETHYLENE GLYCOL 3350 POWDER 17 GM/1 PACKET PO SCH (10:00)
[2020-09-15] MEDS ORDERED: CELECOXIB 200 MG CAPSULE PO SCH (10:00)
== END 2020-09-14 10:15 | disposition home health service (06) ==
LOC: 4S 05:36 → OROUT 05:36 → EDSTATUS 07:30 → OROUT 12:01 → 4S 12:01 → OROUT 09-14 10:15
PROVIDERS: ADMIT Orthopaedic Surgery; ATTEND Orthopaedic Surgery
DX: M16.12 Unilateral primary osteoarthritis, left hip (principal); I97.89 Other postprocedural complications and disorders of the circulatory system, not elsewhere classified; R42 Dizziness and giddiness; Y83.8 Other surgical procedures as the cause of abnormal reaction of the patient, or of later complication, without mention of misadventure at the time of the procedure; E66.9 Obesity, unspecified; Z22.322 Carrier or suspected carrier of Methicillin resistant Staphylococcus aureus; I10 Essential (primary) hypertension; K21.9 Gastro-esophageal reflux disease without esophagitis; D86.0 Sarcoidosis of lung; Z79.82 Long term (current) use of aspirin; Z79.899 Other long term (current) drug therapy; Z82.49 Family history of ischemic heart disease and other diseases of the circulatory system; Z96.641 Presence of right artificial hip joint; Z79.01 Long term (current) use of anticoagulants; Z20.828 Contact with and (suspected) exposure to other viral communicable diseases; Z68.38 Body mass index [BMI] 38.0-38.9, adult; Z98.1 Arthrodesis status; Z96.82 Presence of neurostimulator
CPT/HCPCS: 27130; 86900; 86901; 36415 ×2; 86850; 82040; 84132; 85025; 85027; 85652; 85610; 85730; 86140; 80048; 81001; 87070; 83036; 82306; 71045; 73502; 73501; 93005; 93010; 97530 ×2; 97110; 97116; 97163; 97535; 97165; 01214; G0378 ×2; C1776 ×4; U0003; J2250; J3490 ×8; J0690 ×3; S0119; J3010; J1885 ×2; J2270 ×2; J2405; J7060 ×2; J2704; J3370; C9803; 87635